=== PATIENT | male | born 1990 | race Caucasian/White ===

== ENCOUNTER 2016-06-26 13:03 | Emergency (ER) | payer MEDICAID, OTHER ==
[2016-06-26 14:02] VITALS: BP 143/90
[2016-06-26] MEDS ORDERED: ceFAZolin 1 GM in Sodium Chloride 0.9% 50 ML IV ONE (14:02)
[2016-06-26] MEDS ORDERED: Sodium Chloride 0.9% 1,000 ML IV ONE (14:07)
--- NOTE | 2016-06-26 14:07 | ED Physician Chart ---
Chief Complaint/HPI - Patient Information Date Seen:: 06/26/16 Time Seen:: 14:03 Chief Complaint:: rt leg injury History of Present Illness:: pt says maira had a red rash on rt leg x 4 days...began w minor sindi injury when he helped friend move a dresser and was cut on leg by a staple. no fever. leg feels warm and looks red now and is sore. no coug, no cp. no sob. no hx of dvt. denies prior dr visits other than here for ankle sprain 11/06. no meds taken/tried. nkda pdmp has no data on this pt name. Allergies:: Allergies Allergy/AdvReac Type Severity Reaction Status Date / Time No Known Allergies Allergy Verified 06/26/16 14:01 Vitals:: Vital Signs - 8 hr 06/26/16 06/26/16 13:41 14:02 Temp 97.7 F HR 107 RR 16 BP 143/90 143/90 O2 Sat % 99 Historian:: Patient, Family Member (gf) Review of Systems - Review of Systems General/Constitutional: No fever, No chills, No weight loss, No weakness, No diaphoresis, No edema, No loss of appetite Skin: No skin lesions, Rash, No bruising Head: No headache, No light-headedness Eyes: No loss of vision, No pain, No diplopia ENT: No earache, No nasal drainage, No sore throat, No tinnitus Neck: No neck pain, No swelling, No thyromegaly, No stiffness, No mass noted Cardio Vascular: No chest pain, No palpitations, No PND, No orthopnea, No edema Pulmonary: No SOB, No cough, No sputum, No wheezing GI: No nausea, No vomiting, No diarrhea, No pain, No melena, No hematochezia, No constipation, No hematemesis G/U: No dysuria, No frequency, No hematuria Musculoskeletal: No bone or joint pain, No back pain, No muscle pain, Other (rt lower leg pain w rash.) Endocrine: No polyuria, No polydipsia Psychiatric: No prior psych history, No depression, No anxiety, No suicidal ideation Hematopoietic: No bruising, No lymphadenopathy Allergic/Immuno: No urticaria, No angioedema Neurological: No syncope, No focal symptoms, No weakness, No paresthesia, No headache, No seizure, No dizziness, No confusion, No vertigo Past Medical History - Past Medical History Past Medical History: No significant medical hx Social History: Non Smoker, No Alcohol, No Drug Use Medication: None Family Medical History - Family Member Mother History Unknown: Yes Hx Family Diabetes: No Physical Exam - Physical Examination General/Constitutional: Awake, Well-developed, well-nourished, Alert, No distress, GCS 15, Non-toxic appearing, Ambulatory Head: Atraumatic Eyes: Lids, conjuctiva normal, PERRL, EOMI Skin: Nl inspection, No rash, No skin lesions, No ecchymosis, Well hydrated, No lymphadenopathy ENMT: External ears, nose nl, Nasal exam nl, Lips, teeth, gums nl Neck: Nontender, Full ROM w/o pain, No JVD, No nuchal rigidity, No bruit, No mass, No stridor Respiratory: Nl effort/Exclusion, Clear to Auscultation, No Wheeze/Rhonchi/Rales Cardio Vascular: RRR, No murmur, gallop, rubs, NL S1 S2 GI: No tenderness/rebounding/guarding, No organomegaly, No hernia, Normal BS's, Nondistended, No mass/bruits, No McBurney tenderness : No CVA tenderness Extremities: No tenderness or effusion, Full ROM, normal strength in all extremities, No edema, Normal digits & nails Other Extremities comments:: rt leg is warm w lt red rash. there is a 1cm lac at lateral mid rt lower leg w red rash surounding. warm to touch. no obv homans sx. good pulses. Neuro/Psych: Alert/oriented, DTR's symmetric, Normal sensory exam, Normal motor strength, Judgement/insight normal, Mood normal, Normal gait, No focal deficits Misc: normal gait, Normal back, No paraspinal tenderness Labs/Radiology/EKG Results - Lab Results Results: pt refused to allow lab draw or iv. signed ama form for this. was explained to pt by myself why these labs important. ED Septic Shock - . Is Septic Shock (SBP<90, OR Lactate>4 mmol\L) present?: No - <6hrs of presentation: Vital Signs: Vital Signs - 8 hr 06/26/16 06/26/16 13:41 14:02 Temp 97.7 F HR 107 RR 16 BP 143/90 143/90 O2 Sat % 99 Reassessment (Disposition) - Reassessment Reassessment Condition:: Unchanged - Diagnosis Diagnosis:: cellulitis rt leg pt refusing labs and refusing admission - leaving ama - Aftercare/Follow up Instructions Aftercare/Follow-Up Instructions:: Counseled pt regarding lab results/diagnosis & need follow up Medication Prescribed:: rx keflex. 500tid x 2 wks pt refused admit and refused labs...left ama. qs answered. have advised he fu closely w pmd in next 1-2 days. may return if worse. he does not currently seem septic however the region of cellulitis is large enough to be concerning. - Patient Disposition Discharge/Transfer:: Against Medical Advice Condition at Disposition:: Unchanged
== END 2016-06-26 15:26 | disposition home or self-care (01) ==
LOC: ER 13:03
DX: L03.115 Cellulitis of right lower limb (principal)
CPT/HCPCS: Z7502; Z7610